=== PATIENT | female | born 1990 | race Caucasian/White ===

== ENCOUNTER 2019-07-01 11:36 | Emergency (ER) | payer SELFPAY ==
[2019-07-01 11:41] VITALS: BP 124/90; PULSE 85; TEMP 98; BMI 31.8
[2019-07-01] MEDS ORDERED: TETRACAINE 0.5% HCL 0.6ML DROPPER.BOTTLE OS ONE (11:53)
[2019-07-01] MEDS ORDERED: FLUORESCEIN NA 1 EA STRIP OS ONE (11:53)
[2019-07-01] MEDS ORDERED: FLUORESCEIN NA 1 EA STRIP ONE (11:53)
[2019-07-01] MEDS ORDERED: ERYTHROMYCIN 0.5% OPHTHALMIC OINTMENT 3.5 GM TUBE OS ONE (11:57)
[2019-07-01] MEDS ORDERED: ERYTHROMYCIN 0.5% OPHTHALMIC OINTMENT 3.5 GM TUBE ONE ×2 (12:03→13:01)
--- NOTE | 2019-07-01 12:03 | PDOC ---
History of Present Illness - General Chief Complaint: Eye Problem Stated Complaint: LT EYE INJURY Time Seen by Provider: 07/01/19 11:42 History Source: Patient Exam Limitations: No Limitations - History of Present Illness Initial Comments: 07/01/19 12:01 HISTORY OF PRESENT ILLNESS: Is a 29-year-old woman without comorbidities who presents emergency department for evaluation of left eye pain status post blow to left eye 1 in the morning while breast-feeding. Patient reports her child rolled over while breast-feeding and accidentally struck her in the face with his left hand. She noted some pain initially when she woke up this morning noted to have some blurry vision in her left eye. Patient put her contacts in prior to arrival in the emergency department and reports having decreased visual acuity in her left eye compared to right. Patient denies any foreign body sensation. No recent travel or sick contacts. PAST MEDICAL HISTORY: Denies past medical history SURGICAL HISTORY: Denies ALLERGIES: No known drug allergies REVIEW OF SYSTEMS General/Constitutional: Denies fever or chills. Denies weakness, weight change. HEENT: See HPI Cardiovascular: Denies chest pain or shortness of breath. Respiratory: Denies cough, wheezing, or hemoptysis. Gastrointestinal: Denies nausea, vomiting, diarrhea or constipation. Denies rectal bleeding. Genitourinary: Denies dysuria, frequency, or change in urination. Musculoskeletal: Denies joint or muscle swelling or pain. Denies neck or back pain. Skin and breasts: Denies rash or easy bruising. Neurologic: Denies headache, vertigo, loss of consciousness, or loss of sensation. Psychiatric: Denies depression or anxiety. Endocrine: Denies increased thirst. Denies abnormal weight change. Hematologic/Lymphatic: Denies anemia, easy bleeding, or history of blood clots. Allergic/Immunologic: Denies hives or skin allergy. Denies latex allergy. PHYSICAL EXAM General Appearance: Well-appearing, appropriately dressed. No apparent distress , no intoxication. HEENT: EOMI, PERRLA, normal ENT inspection, normal voice, TMs normal, pharynx normal. No conjunctival pallor. No photophobia, scleral icterus. No orbital tenderness. No abnormal fluorescein uptake. No pupillary deformity. No orbital tenderness present. Neck: Supple. Trachea midline. No tenderness, rigidity, carotid bruit, stridor , lymphadenopathy, or thyromegaly. Respiratory/Chest: Lungs CTAB. No shortness of breath, chest tenderness, respiratory distress, accessory muscle use. No crackles, rales, rhonchi, stridor , wheezing, dullness Cardiovascular: RRR. S1, S2. No JVD, murmur, bradycardia, tachycardia. Neurologic: automatic lathe tender II-XII intact. Fully oriented, alert. Appropriate mood/affect. Motor strength 5/5. No appreciable EOM palsy, facial droop or sensory deficit. Past History - Past Medical History Allergies/Adverse Reactions: Allergies Allergy/AdvReac Type Severity Reaction Status Date / Time No Known Allergies Allergy Verified 07/01/19 11:40 COPD: No - Psycho Social/Smoking Cessation Hx Smoking History: Never smoked *Physical Exam - Vital Signs Last Vital Signs Temp Pulse Resp BP Pulse Ox 98 F 85 18 124/90 98 07/01/19 11:37 07/01/19 11:37 07/01/19 11:37 07/01/19 11:37 07/01/19 11:37 ED Treatment Course - Medications Given in the ED: ED Medications Discontinued Medications Generic Name Dose Route Start Last Admin Trade Name Freq PRN Reason Stop Dose Admin Fluorescein Sodium 1 ea 07/01/19 11:53 07/01/19 11:56 Fluorets - OS 07/01/19 11:54 1 ea ONCE ONE Administration Tetracaine HCl 1 drop 07/01/19 11:53 07/01/19 11:56 Tetravisc 0.5% Eye Drops - OS 07/01/19 11:54 1 drop ONCE ONE Administration Medical Decision Making - Medical Decision Making 07/01/19 12:00 A/P: 29-year-old woman with left eye pain and reported blurred vision since 1 AM after being struck by her 1-year-old child in the EYE EXAMINATION: Visual acuity: 20/30 in the left eye, 20/25 in the right eye, near, corrected The lid and lashes are normal. Extraocular movements are intact. The conjunctiva is clear without erythema, injection, or discharge The corneal surface is normal post tetracaine and fluorescein. There is no corneal abrasion or foreign body. There is no abnormal fluorescein uptake. The pupils are equal, round and reactive to light. The fundus shows normal vessels and normal discs. Erythromycin ointment Discharge home with ophthalmology follow-up Discharge - Discharge Information Problems reviewed: Yes Clinical Impression/Diagnosis: Acute left eye pain Condition: Stable Disposition: HOME - Admission No - Follow up/Referral Referrals: Les Cai MD [Staff Physician] - - Patient Discharge Instructions Additional Instructions: Use erythromycin ointment in your eye 3 times a day while awake. Without fail call ophthalmology for reevaluation. Use your glasses until evaluated by ophthalmology. Take Tylenol or Motrin as needed for pain. Stop breast-feeding at 1:00 in the morning. Your child should be sleeping at this time. Return to the emergency department for any new or worsening symptoms. Thank you very much for choosing us to provide your emergent health care needs. - Post Discharge Activity
== END 2019-07-01 12:34 | disposition home or self-care (01) ==
LOC: JERFT 11:36
PROC: 4A07X0Z Measurement of Visual Acuity, External Approach (ICD-10-PCS; principal; 2019-07-01)
DX: H57.12 Ocular pain, left eye (principal); W50.0XXA Accidental hit or strike by another person, initial encounter; Y93.89 Activity, other specified; Y92.038 Other place in apartment as the place of occurrence of the external cause; Y99.8 Other external cause status
CPT/HCPCS: 99282-25